=== PATIENT | female | born 2000 | race Caucasian/White ===

== ENCOUNTER 2021-04-03 20:09 | Emergency (ER) | payer BC ==
[~2021-04-03] VITALS: Ht 167.6 cm; Wt 53.6 kg
[2021-04-03 20:27] LABS: COLLECTION METHOD CLEAN CATCH
[2021-04-03 20:32] LABS: PH 6 (5-8); URINE APPEARANCE Clear; URINE BACTERIA Rare /hpf; URINE BILIRUBIN Negative (NEGATIVE); URINE BLOOD 2+ (NEGATIVE); URINE COLOR Amber; URINE GLUCOSE Negative (NEGATIVE); URINE KETONE Negative (NEGATIVE); URINE LEUKOCYTE ESTERASE Trace (NEGATIVE); URINE NITRATE Positive (NEGATIVE); URINE PROTEIN(semi-quant) Negative (NEGATIVE); URINE RBC 0-2 /hpf; URINE UROBILINOGEN >=4.0 mg/dL (NEGATIVE)
[2021-04-03] MEDS ORDERED: CEFTIN 250250 MG/TAB PO (20:55)
[2021-04-03 21:13] VITALS: BP 98/64; PULSE 85; TEMP 99.3
== END 2021-04-03 21:13 | disposition home or self-care (01) ==
LOC: COL.ER 20:09
PROVIDERS: Emergency Medicine
DX: N39.0 Urinary tract infection, site not specified (principal); Z32.02 Encounter for pregnancy test, result negative